=== PATIENT | female | born 2000 | race Hispanic/Latino ===

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

== ENCOUNTER 2021-08-11 13:36 | Observation (INO) | payer BC, MEDICAID ==
[~2021-08-11 13:36] MED LIST changes: -IOHEXOL-350 75 ML VIAL IV ONE
== END 2021-08-11 16:03 | disposition home or self-care (01) ==
LOC: LDH 13:36
PROVIDERS: ADMIT Specialist; ATTEND Specialist
DX: Z34.93 Encounter for supervision of normal pregnancy, unspecified, third trimester (principal); Z3A.34 34 weeks gestation of pregnancy
CPT/HCPCS: 59025; 76819; G0378 ×2; G0379

== ENCOUNTER 2021-08-18 10:27 | Observation (INO) | payer BC, MEDICAID ==
[~2021-08-18] VITALS: Ht 157.5 cm; Wt 78.5 kg
[2021-08-18] MEDS ORDERED: LACTATED RINGERS 1000ML 1,000 ML IV SCH (11:00)
== END 2021-08-18 14:09 | disposition home or self-care (01) ==
LOC: LDH 10:27
PROVIDERS: ADMIT Specialist; ATTEND Specialist
DX: Z34.93 Encounter for supervision of normal pregnancy, unspecified, third trimester (principal); Z3A.34 34 weeks gestation of pregnancy
CPT/HCPCS: 59025; 96360; 96361; G0378 ×3; J7120